=== PATIENT | male | born 1950 | race Caucasian/White ===

== ENCOUNTER 2021-05-11 08:55 | Outpatient (CLI) | payer OTHER | END 2021-05-11 09:00 | disposition home or self-care (01) | LOC: SONOGRAMA 08:55 | PROVIDERS: ATTEND Internal Medicine Cardiovascular Disease | DX: M12.9 Arthropathy, unspecified (principal); R10.9 Unspecified abdominal pain; N40.0 Benign prostatic hyperplasia without lower urinary tract symptoms; M48.07 Spinal stenosis, lumbosacral region ==

== ENCOUNTER → 2022-03-26 | Outpatient (CLI) | payer OTHER | END | disposition home or self-care (01) | LOC: NUCLEAR 03-19 08:00 | PROVIDERS: ATTEND Internal Medicine Cardiovascular Disease | DX: I11.9 Hypertensive heart disease without heart failure (principal); R07.89 Other chest pain ==

== ENCOUNTER 2022-04-15 07:56 | Outpatient (CLI) | payer OTHER | END 2022-04-15 07:59 | disposition home or self-care (01) | LOC: NUCLEAR 07:56 | PROVIDERS: ATTEND Internal Medicine Cardiovascular Disease | DX: R07.9 Chest pain, unspecified (principal); E11.9 Type 2 diabetes mellitus without complications; I10 Essential (primary) hypertension | CPT/HCPCS: 78452; 93017; A9500 ==

== ENCOUNTER 2022-12-23 08:09 | Outpatient (CLI) | payer OTHER | END 2022-12-23 08:14 | disposition home or self-care (01) | LOC: RAD 08:09 | PROVIDERS: ATTEND Internal Medicine Cardiovascular Disease | DX: M12.9 Arthropathy, unspecified (principal) ==

== ENCOUNTER 2024-07-23 07:27 | Outpatient (CLI) | payer OTHER | END 2024-07-23 07:36 | disposition home or self-care (01) | LOC: RAD 07:27 | PROVIDERS: ATTEND Internal Medicine Cardiovascular Disease | DX: M12.9 Arthropathy, unspecified (principal) ==

== ENCOUNTER 2025-02-26 08:32 | Emergency (ER) | payer OTHER ==
[~2025-02-26] VITALS: Ht 175.3 cm; Wt 83.9 kg
[2025-02-26] MEDS ORDERED: LIPITOR20 MG (09:09)
[2025-02-26] MEDS ORDERED: TOPROL XL25 M1 (09:09)
[2025-02-26] MEDS ORDERED: AVAPRO150 MG (09:10)
[2025-02-26] MEDS ORDERED: JENTADUETO 2.51 EAC2 (09:10)
[2025-02-26] MEDS ORDERED: TAMSULOSIN HCL0.4 MG (09:11)
[2025-02-26] MEDS ORDERED: PROPECIA1 MG (09:11)
[2025-02-26 09:53] LABS: BASO % 0.7 % (0.1-1.2); EOS # 0.12 (0.04-0.54); EOS % 2.0 % (0.7-7.0); LYMPH # 1.54 (1.18-3.74); LYMPH % 25.4 % (19.3-53.1); MEAN PLATELET VOLUME 12.50 fl (9.4-12.4); MONO # 0.49 (0.24-0.82); MONO % 8.1 % (4.7-12.5); NEUT # 3.87 (1.56-6.13); NEUT % 63.6 % (34.0-71.1); RED CELL DISTRIBUTION WIDTH 13.2 % (11.6-14.4)
[2025-02-26 09:59] LABS: ERYTHROCYTE SEDIMENTATION RATE 19 mm/hr (0-20)
[2025-02-26 10:07] LABS: INR 1.1
[2025-02-26 10:28] LABS: ALT/SGPT 33 U/L (12-78); AST/SGOT 19 U/L (15-37); BILIRUBIN TOTAL 0.84 mg/dL (0.3-1.2); BUN CREA RATIO 17 (7.0-25.0); CREATININE SERUM 0.98 mg/dL (0.70-1.30); GFR 74.77; GLOBULINA 3.4 G/DL (2.4-3.5); GLUCOSE FASTING 260 mg/dL (65-100); OSMOLALITY SERUM 290 MOSM/KG (275-295)
[2025-02-26] MEDS ORDERED: LABETALOL HCL 20MG/4ML SYRINGE IV STA (11:18)
[2025-02-26 11:31] LABS: URINE APPEARANCE Clear; URINE BILIRRUBIN Negative (NEGATIVE); URINE BLOOD Negative; URINE COLOR Yellow; URINE KETONE Negative (NEGATIVE); URINE LEUKOCYTE Negative; URINE NITRATE Negative; URINE PROTEIN 30 (NEGATIVE); URINE UROBILINOGEN 0.2 E.U./dl
[2025-02-26 11:35] LABS: URINE RBC 4.2 uL (0.0-20.8)
[2025-02-26 12:00] LABS: URINE BACTERIA 2.2 uL (0.0-1933); URINE CAST 0.00 uL (0.0-1.40); URINE EPITHELIAL CELLS 0.6 uL (0.0-38.8); URINE GLUCOSE 250 MG/DL (NEGATIVE); URINE WBC 0.7 uL (0.0-23.2)
[2025-02-26] MEDS ORDERED: LEVSIN/SL0.125 MG SL (13:23)
== END 2025-02-26 13:55 | disposition home or self-care (01) ==
LOC: ER 08:32
PROVIDERS: Physician Assistant Medical
DX: K80.20 Calculus of gallbladder without cholecystitis without obstruction (principal); E11.65 Type 2 diabetes mellitus with hyperglycemia; Z79.84 Long term (current) use of oral hypoglycemic drugs; E78.00 Pure hypercholesterolemia, unspecified; I10 Essential (primary) hypertension; E03.8 Other specified hypothyroidism; N20.0 Calculus of kidney